=== PATIENT | male | born 1955 | race Caucasian/White ===

== ENCOUNTER 2017-06-25 10:14 | Inpatient (IN) | payer OTHER ==
[2017-06-25 11:15] LABS: Mean Corpuscular HGB Conc 34 g/dl (31-36); Mean Corpuscular Hemoglobin 35 pg (27-31); Mean Platelet Volume 9 um3 (7.4-10.4); Red Blood Count 4.18 10^6/ul (4.0-5.4); White Blood Count 5.8 10^3/ul (3.5-10.8)
[2017-06-25 11:18] LABS: Hematocrit 43 % (42-52); Hemoglobin 14.6 g/dl (14.0-18.0); Mean Corpuscular Volume 103 fL (80-94); Red Cell Distribution Width 14 % (10.5-15)
[2017-06-25 11:19] LABS: ALT 27 U/L (7-52); AST 43 U/L (13-39); Albumin 3.2 g/dL (3.2-5.2); Alkaline Phosphatase 123 U/L (34-104); Anion Gap 7 mmol/L (2-11); BUN/Creatinine Ratio 21.5 (8-20); Blood Urea Nitrogen 14 mg/dL (6-24); CO2 Carbon Dioxide 21 mmol/L (22-32); Calcium 8.7 mg/dL (8.6-10.3); Chloride 108 mmol/L (101-111); EGFR African American 161.7 (>60); EGFR Non-African American 125.7 (>60); Globulin 3.3 g/dL (2-4); Glucose 115 mg/dL (70-100); Potassium 3.6 mmol/L (3.5-5.0); Sodium 136 mmol/L (133-145); Total Protein 6.5 g/dL (6.4-8.9)
--- NOTE | 2017-06-25 11:31 | RAD ---
HISTORY: Expressive aphasia COMPARISONS: None TECHNIQUE: Multiple contiguous axial CT scans were obtained of the head without intravenous contrast. FINDINGS: HEMORRHAGE/INFARCT: There is no hemorrhage or acute infarct. MASSES/SHIFT: There is no mass or shift. EXTRA-AXIAL SPACES: There are no extra-axial fluid collections. SULCI AND VENTRICLES: The sulci and ventricles are normal in size and position for the patient's stated age. CEREBRUM: There are no focal parenchymal abnormalities. BRAINSTEM: There are no focal parenchymal abnormalities. CEREBELLUM: There are no focal parenchymal abnormalities. VESSELS: The vessels are grossly normal. PARANASAL SINUSES: The paranasal sinuses are clear. ORBITS: The orbits are unremarkable. BONES AND SOFT TISSUE: No bone or soft tissue abnormalities are noted. OTHER: None IMPRESSION: NO ACUTE INTRACRANIAL PATHOLOGY.
[2017-06-25 12:27] LABS: Urine Bilirubin Negative (Negative); Urine Glucose Negative (Negative); Urine Nitrite Negative (Negative)
[2017-06-25 13:02] LABS: Alcohol < 10 mg/dL (<10)
[2017-06-25] MEDS ORDERED: Ondansetron INJ* 2 MG/ML VIAL IV PRN (14:20)
[2017-06-25] MEDS ORDERED: NS 0.9% 1000 ML* 1,000 ML IV SCH (14:30)
[2017-06-25] MEDS ORDERED: LORazepam INJ* 2 MG/ML 1 ML VIAL IV PUSH ONE (14:55)
[2017-06-25] MEDS ORDERED: NS 0.9% 500 ML BAG* 500 ML IV ONE (15:50)
[2017-06-25] MEDS ORDERED: Flumazenil* 0.1 MG/ML 5 ML MDV IV ONE (16:50)
--- NOTE | 2017-06-25 16:58 | PN ---
Hospitalist Progress Note Asked to eval patient for worsening AMS, on eval responds minimally to sternal rub. Did receive ativan in the ed. Noted to be rigid in the upper exts. Will repeat ct brain, neuro consult tx to icu, [place] lactulose, ? if ams worsening ammonia or perhaps ativan. ICU for close monitoring
[2017-06-25] MEDS: NS 0.9% 1000 ML* 1,000 ML IV SCH (17:32)
--- NOTE | 2017-06-25 17:41 | HP ---
HISTORY AND PHYSICAL: DATE OF ADMISSION: 06/25/17 PRIMARY CARE PROVIDER: Unknown, he is from [facility]. ATTENDING PHYSICIAN WHILE IN THE HOSPITAL: Dr. Susu Malone * (report dictated by Abdullahi Dumont NP). CHIEF COMPLAINT: Altered mental status. HISTORY OF PRESENT ILLNESS: I would like to preface the report by saying that the patient really cannot give much history as he is pretty drowsy and is confused. The family is here and is able to tell me what happened. They said that the last couple of days, the patient has not been making sense. He has had increasing fatigue. He has been confused, waking up in the morning and not really knowing where he is. He has been not acting himself. They have noticed that his gait has been very ataxic, walking like he has drank too much and also noticed that he was incontinent of urine. They are concerned today because they thought may be he had a stroke because his speech was not making any sense at all today, so they brought him into the hospital. There has been no reports of fevers, abdominal pain, nausea, vomiting, diarrhea, chest pain, or shortness of breath. He was evaluated here in the ED, his ammonia was 226. We are asked to evaluate for admission. PAST MEDICAL HISTORY: Alcoholic liver cirrhosis. PAST SURGICAL HISTORY: He has had an appendectomy. HOME MEDICATIONS: Denied. ALLERGIES TO MEDICATIONS: Include no known drug allergies. FAMILY HISTORY: Mother had a history of an MD. His brother also had a liver disease and father had a history of pancreatitis. SOCIAL HISTORY: He is a former smoker, last drink was about a year ago. Surrogate decision maker is his . REVIEW OF SYSTEMS: There is no documented fever. Denied any significant weight change. There was no double vision. There was no ear discharge. Denied having any rhinorrhea. No sore throat. No thyroid enlargement. Denied having any chest pain or orthopnea. No nocturnal dyspnea. There was no abdominal pain. No nausea. No vomiting. There was no dysuria. No frequency. No loss of consciousness. No pruritus and no skin ulcerations. Review of 14 systems completed, all others were negative. PHYSICAL EXAMINATION GENERAL: At this time, Mr. Castro is a 51-year-old male patient; he is sitting in the ER stretcher. He does not appear to be in any acute distress. VITAL SIGNS: Reveals blood pressure 124/73, pulse of 70, respirations 16, O2 sat 96%, and temperature 98.9. HEENT: Head is atraumatic, normocephalic. Eyes: Pupils equal and reactive to light. Throat: Oral mucosa appears to be dry. No oropharyngeal erythema. NECK: Supple. LUNGS: Clear to auscultation. No wheezes, rales, or rhonchi. HEART: Sounds S1, S2. Regular rate and rhythm. No murmurs, rubs, or gallops. ABDOMEN: Soft, flat, nontender. I did not appreciate any ascites on my exam. EXTREMITIES: Pulses were 2+ throughout. Able to move all 4 extremities with 5/ 5 strength. NEUROLOGICAL: The patient is awake to himself only. He is confused to time, place. He cannot follow complex commands. He appears to be drowsy. He can move his upper extremities and lower extremities. No facial drooping. Neuro exam is limited because of lack of patient's participation, but no gross obvious focal deficits. SKIN: Intact. LABORATORY DATA/DIAGNOSTIC STUDIES: Today, WBC of 5.8, RBC of 4.18, hemoglobin of 14.6, hematocrit of 43, and a platelet count of 133. Coags are pending. Sodium is 136, potassium 3.6, chloride of 106, bicarb 21, BUN 14, creatinine 0.65, glucose of 115, lactate 2.7, and calcium 8.7. Total bili 1.8, AST 43, ALT 27, alk phos 123, ammonia was 226, albumin was 3.2. Urine was positive for urobilinogen. Toxicology was negative for alcohol. He had a brain CT obtained today as well, which revealed no acute intracranial pathology. EKG today showed normal sinus rhythm at the rate of 70. No ST elevation or T wave inversions. Old medical records were reviewed. ASSESSMENT AND PLAN: Mr. Castro is a 61-year-old male patient coming into the hospital today with complaints of altered mental status. On evaluation found to have ammonia of 226. He will be admitted under observation status for: 1. Hepatic encephalopathy. At this point, we touched base with GI. The plan is to try lactulose 30 mL q.i.d. If he does not clear his mentation then GI will see him tomorrow. We need to touch base with GI in the morning to update them how he is doing. We will touch base with Dr. Stevens, who will be here tomorrow. If he develops diarrhea, would consider adding rifaximin We will get neuro checks every 2 to 4 hours. If he does not clear as well, we will get in touch with Neurology and he may need further imaging of his brain. In terms of what caused the elevated pneumonia, it is unclear, is not actively bleeding that I could see, but no reports of fever, no obvious infection. I will put him on broad spectrum antibiotics and I will butler culture him and probably do some imaging if he does mount a fever, but at this point, I am holding off. 2. Alcoholic liver cirrhosis. He does have a security management specialist in [place]. We can start the lactulose. He is probably going to need to be on b.i.d. lactulose moving forward after his ammonia clears and he can follow with his primary security management specialist in [place]. 3. DVT prophylaxis. Placed on SCDs and holding on blood thinners, but I do not know if he has esophageal varices such as heparin, so I would like to just put him on SCDs. 4. Code status: Full code. 5. Fluids, electrolytes, and nutrition. He is n.p.o. once he is awake and put on low protein diet. In the meantime, I will add normal saline at 100 an hour. TIME SPENT: On the admission was 60 minutes, greater than half the time spent face- to-face with the patient obtaining my history and physical; other half time spent going over the plan of care with the patient and implementing the plan of care. I discussed the plan of care with my attending, Dr. Malone, who is in agreement. ABDULLAHI DUMONT, OJ [id number]/CPS #: [id number] [facility]
--- NOTE | 2017-06-25 18:47 | RAD ---
INDICATION: Altered mental status. COMPARISON: Comparison is made with a prior CT of the brain from June 25, 2017 from approximately 7 hours earlier. TECHNIQUE: Contiguous axial sections of the brain were obtained from the skull base to the vertex without contrast. FINDINGS: The ventricles, cisterns and sulci are within normal limits. No significant focal abnormality or mass effect is seen. There is no evidence for hemorrhage. No significant focal osseous abnormality is seen. The visualized portion of the paranasal sinuses and mastoid air cells appear clear. IMPRESSION: NO EVIDENCE FOR ACUTE INTRACRANIAL ABNORMALITY.
[2017-06-25] MEDS: Lactulose 300 ML for PR* 10 GM/15 ML BTL PR SCH (21:40)
--- NOTE | 2017-06-26 00:30 | CONS ---
NEUROLOGY CONSULTATION: DATE OF CONSULT: 06/25/17 REQUESTING PROVIDER: Abdullahi Dumont NP REASON FOR CONSULT: Unresponsiveness and rigidity. HISTORY OF PRESENT ILLNESS: Abdiel Lala is a 61-year-old man with a history of alcoholic liver cirrhosis, who lives in [facility] and has been here since 06/16/17 visiting his son, who attends [employer]. He is here with his . I was initially contacted by Dr. Pierce in the emergency room with concern for stroke in this patient. His family brought him in today stating that he has not been making sense over the past couple of days and it has been worsening. His son says he has had increasing fatigue and confusion including waking up and not really knowing where he is in the morning. He has had urinary incontinence and his gait has been off, very ataxic as though he had drank too much. Today, his speech was apparently not making any sense at all and so he was brought to the hospital for further evaluation. He did have a cold recently, but the son denies that he had any fevers associated with this. On further evaluation in the emergency department, his ammonia came back significantly elevated at 226 and so initially Abdullahi Dumont, who was evaluating him for admission, felt that Neurology did not need to be involved. He was apparently significantly agitated in the emergency department, pulling off his telemetry leads and trying to pulling out his IV lines and was given 2 mg of Ativan IV. He was subsequently transferred to the fourth floor and became significantly difficult to arouse with sonorous breathing. In addition, when Abdullahi Dumont went in to evaluate him, he had significant rigidity in his extremities and there was concern that he was posturing on his left side and so I was asked to evaluate the patient as well. I evaluated him over 2 separate evaluations and in between, he was given flumazenil for reversal of the lorazepam, which resulted in modest improvement in his mental status. PAST MEDICAL HISTORY: Alcohol liver cirrhosis. PAST SURGICAL HISTORY: Appendectomy. HOME MEDICATIONS: Family denied the patient taking any home medications. ALLERGIES: No known drug allergies. FAMILY HISTORY: Mother had a heart attack. His brother also has liver disease and father with a history of pancreatitis. SOCIAL HISTORY: He is a former smoker and apparently the last drink is reported to be approximately a year ago. REVIEW OF SYSTEMS: Not obtainable from the patient secondary to his clinical condition. PHYSICAL EXAM: Vital Signs: Temperature 97.6, blood pressure 116/59, oxygen saturation 100% on room air, heart rate 55. On general examination, the patient was lying in bed with snoring respirations. With noxious stimulation, he would grimace and say ow! and briefly open his eyes , but then would quickly fall back to sleep. He did not follow any commands. On neurologic examination, his gaze was dysconjugate when he was asleep but when alerted, became conjugate. He had roving eye movements in all directions. His VORs were intact. His pupils were dilated to 5 mm and reactive. There were no obvious blink to threat. His face is symmetric. On motor examination, he has significantly increased tone in the lower greater than upper extremities. Initially, I was unable to flex his arms at the elbows or his legs at his knees. In addition, when his arms were elevated, he had myoclonus versus asterixis, but would have some antigravity strength but not sustained. The toes are briskly upgoing. After flumazenil was administered, tone was much improved in his upper extremities and he was found to be lying in his bed with his legs flexed at the knees rather than extended straight out as he had been previously. He was noted to be able to state his name. He still was lethargic and fell asleep easily when not stimulated. Throughout this, he briskly reacted to noxious stimulation in all 4 extremities. DIAGNOSTIC STUDIES/LAB DATA: CBC shows an elevated MCV of 103 and MCH of 35. Platelets are low at 133. White count, hematocrit, hemoglobin were normal. Coagulation studies showed an elevated INR of 1.21. CMP showed slightly low CO2 of 21, creatinine of 0.65, BUN to creatinine ratio of 21.5, nonfasting glucose of 115, total bilirubin of 1.8, slightly elevated AST of 43 and ALT is normal at 27, and alkaline phosphatase is 123. His total protein was normal at 6.5 and albumin normal at 3.2. His ammonia as mentioned was 226. His lactate is elevated at 2.7 at 10:48 and then further elevated to 3 at 3:15 p.m. Urinalysis showed positive urobilinogen and otherwise negative. Serum alcohol level was less than 10. Brain CT was obtained and personally reviewed and was a normal study. IMPRESSION: Abdiel Lala is a 61-year-old man with alcoholic liver cirrhosis and hepatic encephalopathy who presented to the emergency department with encephalopathy. After receiving Ativan for agitation, he became significantly somnolent and exhibited increased tone. After administration flumazenil, his mental status improved somewhat as did his tone. Given the clinical change, however, we are going to be obtaining a repeat brain CT and he will be transferred to the ICU for closer monitoring. In addition, given his significant rigidity, though I think this is probably related to his hepatic encephalopathy, we will get an urgent EEG to evaluate for any signs of subclinical status. Otherwise, care as per the hospitalist team, which will involve administration of lactulose in an attempt to normalize his ammonia. Thank you for this consultation. [id number]/[facility] #: [id number] [facility]
[2017-06-26] MEDS: Lactulose 300 ML for PR* 10 GM/15 ML BTL PR SCH (06:56)
[2017-06-26 07:17] LABS: Hematocrit 39 % (42-52); Hemoglobin 13.6 g/dl (14.0-18.0); Mean Corpuscular HGB Conc 35 g/dl (31-36); Mean Corpuscular Hemoglobin 36 pg (27-31); Mean Corpuscular Volume 103 fL (80-94); Mean Platelet Volume 9 um3 (7.4-10.4); Red Blood Count 3.77 10^6/ul (4.0-5.4); Red Cell Distribution Width 14 % (10.5-15); White Blood Count 6.7 10^3/ul (3.5-10.8)
[2017-06-26 07:28] LABS: Albumin 2.8 g/dL (3.2-5.2); BUN/Creatinine Ratio 23.5 (8-20); Calcium 8.2 mg/dL (8.6-10.3); Direct Bilirubin 0.5 mg/dL (0.03-0.18); EGFR African American 213.9 (>60); EGFR Non-African American 166.3 (>60); Globulin 2.9 g/dL (2-4); Indirect Bilirubin 1.8 mg/dL (0.3-1.0); Potassium 3.5 mmol/L (3.5-5.0); Total Bilirubin 2.3 mg/dL (0.2-1.0); Total Protein 5.7 g/dL (6.4-8.9)
[2017-06-26] MEDS: NS 0.9% 1000 ML* 1,000 ML IV SCH (11:40)
--- NOTE | 2017-06-26 14:19 | EEG ---
ELECTROENCEPHALOGRAPHY: DATE OF STUDY: 06/25/17 LOCATION: Patient is an inpatient in ICU 8. CLINICAL PROBLEM: This is a 61-year-old male with alcoholic cirrhosis and hepatic encephalopathy, who presented to emergency department with increased confusion and gait problems today. He was given Ativan for agitation and became very difficult to arouse and rigid. When his limbs were moved, he would have some myoclonic jerking. EEG is requested to evaluate for epileptiform abnormalities. MEDICATIONS: 1. Lactulose. 2. Zofran 4 mg IV q. 6 p.r.n. 3. Normal saline at 100 mL per hour. Prior to this recording, he was given flumazenil 0.2 mg IV x1. REPORT: The background lacked the organization expected of a typical waking or sleep background. In the frontal regions, the background was characterized by polymorphic, 1 to 2 Hz frequency slowing, while in the posterior regions, activity consisted primarily of 5 Hz activity. As the patient fell asleep, there were fewer delta range frequencies and a greater proportion of the theta range frequencies noted within the background but no well-developed sleep spindles or vertex waves. In addition, during sleep, there were occasional periods of 1 to 2 seconds of diffuse voltage suppression. Throughout the recording, there were no epileptiform discharges, focal features , paroxysmal features, or significant interhemispheric asymmetries. CLINICAL IMPRESSION: This is an abnormal EEG due to the lack of expected organization in the waking or sleep background and diffuse slowing. These findings are consistent with a moderate, nonspecific, diffuse encephalopathy. There are no epileptiform abnormalities. [id number]/CPS #: [id number] MTDD
--- NOTE | 2017-06-26 15:43 | PN ---
Subjective Date of Service: 06/26/17 Interval History: HOSPITALIST PROGRESS NOTE Patient seen and examined at bedside. Son acts as radiographer angiogram. Patient feels well today, denies pain, N/V. Feels pretty close to normal. He states he had an UTI early last year and went to his doctor. Tests done at that time indicated elevated LFTs and further w/u revealed cirrhosis associated with alcohol. Hepatits B and C serologies were negative. He was told everything was stable and he did not need any medications. This is his first episode of hepatic encephalopathy. Denies fever, urinary or bowel complaints, no abdominal pain or black stools. Only thing different is his diet - since arriving to the he has been to [place] different restaurants. Family History: Unchanged from Admission Social History: Unchanged from Admission Past Medical History: Unchanged from Admission Objective Active Medications: Sodium Chloride (Ns 0.9% 1000 Ml*) 1,000 mls @ 100 mls/hr IV PER RATE [facility] Last Admin: 06/26/17 11:40 Dose: 100 mls/hr Lactulose (Lactulose*) 30 ml PO QID [facility] Last Admin: 06/26/17 14:56 Dose: 30 ml Ondansetron HCl (Zofran Inj*) 4 mg IV Q6H PRN PRN Reason: NAUSEA Vital Signs 06/26/17 11:39 Temperature 99 F Pulse Rate 76 Respiratory 18 Rate Blood Pressure 133/85 (mmHg) O2 Sat by Pulse 98 Oximetry Oxygen Devices in Use Now: None Appearance: Pleasant gentleman lying in bed in NAD. Eyes: No Scleral Icterus Ears/Nose/Mouth/Throat: Mucous Membranes Moist Neck: Trachea Midline Respiratory: Symmetrical Chest Expansion and Respiratory Effort, Clear to Auscultation Cardiovascular: RRR - Normal S1 and S2 Abdominal: NL Sounds; No Tenderness; No Distention Extremities: No Edema Neurological: Alert and Oriented x 3, NL Muscle Strength and Tone Lines/Tubes/Other Access: Clean, Dry and Intact Peripheral IV Nutrition: Taking PO's Result Diagrams: 06/26/17 06:00 06/26/17 06:00 Assess/Plan/Problems-Billing Assessment: Mr. Matthew Lala is a 61yo M with PMH of alcoholic liver cirrhosis, who presented to ED with altered MS found to have hepatic encephalopathy. - Patient Problems (1) Hepatic encephalopathy Comment: - Unclear what precipitated this episode. - He had Tmax 100.7, but no other signs of infection. - Denies hematochezia or melena. - Continue lactulose and monitor ammonia. - Advised about diet. - Son had labs from [place] - printed and placed in his chart. - Transfer to medical floor and continue to monitor. - I believe he probably had a reaction to benzos yesterday - EEG showed no epileptiform discharges. (2) DVT prophylaxis Comment: - SCDs. (3) Full code status Status and Disposition: Inpatient.
[2017-06-27 04:52] LABS: Hematocrit 39 % (42-52); Hemoglobin 13.5 g/dl (14.0-18.0); Mean Corpuscular HGB Conc 35 g/dl (31-36); Mean Corpuscular Hemoglobin 36 pg (27-31); Mean Corpuscular Volume 103 fL (80-94); Mean Platelet Volume 9 um3 (7.4-10.4); Red Blood Count 3.76 10^6/ul (4.0-5.4); Red Cell Distribution Width 14 % (10.5-15); White Blood Count 6.1 10^3/ul (3.5-10.8)
[2017-06-27 05:01] LABS: Albumin 2.7 g/dL (3.2-5.2); BUN/Creatinine Ratio 18.2 (8-20); Calcium 7.9 mg/dL (8.6-10.3); EGFR African American 196.1 (>60); EGFR Non-African American 152.5 (>60); Globulin 2.8 g/dL (2-4); Potassium 3.5 mmol/L (3.5-5.0); Total Bilirubin 1.7 mg/dL (0.2-1.0); Total Protein 5.5 g/dL (6.4-8.9)
[2017-06-27 07:45] VITALS: BP 134/77
[2017-06-27] MEDS: NS 0.9% 1000 ML* 1,000 ML IV SCH (07:48)
--- NOTE | 2017-06-27 08:44 | DCNOTE ---
Patient seen this morning with and son (who translated) at bedside. Patient says he is feeling much better, family feels he is back to baseline. Has been having frequent diarrhea, explained need to titrate lactulose to 2-3 soft stools daily. On exam, RRR, s1 and s2 present, no m/g/r, abd soft, NTND, BS+, no ascites, no LE edema. Plan to discharge home today on BID lactulose. Will need outpatient follow-up with his home tax compliance representative, he is flying home in a few days. Counseled on diet.
--- NOTE | 2017-06-28 03:54 | DS ---
DISCHARGE SUMMARY: DATE OF ADMISSION: 06/25/17 DATE OF DISCHARGE: 06/27/17 PRIMARY CARE PHYSICIAN: The [place]CP [place] of the country. He lives in [facility]. PRINCIPAL DISCHARGE DIAGNOSIS: Hepatic encephalopathy. SECONDARY DIAGNOSIS: Alcoholic cirrhosis. DISCHARGE MEDICATION REGIMEN: Lactulose 30 g by mouth 2 times daily. STUDIES DURING THE HOSPITALIZATION: CT of the brain, impression: No acute intracranial pathology. CT of the brain repeated no evidence for acute intracranial abnormality. EEG, impression: This is an abnormal EEG due to lack of expected organization in the waking or sleep background and diffuse slowing, these findings are consistent with a moderate nonspecific diffuse encephalopathy. There ar e no epileptiform abnormalities. CONSULTS DURING HOSPITALIZATION: Dr. Mariya Chavira, Neurology. HISTORY OF PRESENT ILLNESS AND HOSPITAL SUMMARY: Please see the full history and physical by Abdullahi garcía NP for full details. Briefly, Mr. Matthew Lala is a 61- year-old male with a past medical history of alcoholic cirrhosis, who presented to the hospital with increasing fatigue, confusion, s ome ataxic gait. The patient was brought to the emergency room by his family. He is visiting from [facility]. He was found to have an elevated ammonia up to 226. He was started on lactulose. There was no clear evidence of infection or GI bleed or any etiology for why his ammonia may be high. The kusum daniel became unresponsive with some possible rigidity after receiving Ativan. He was transferred to the ICU, evaluated by Neurology, it was found that this was likely an adverse reaction. To this, jeremias franco was given some flumazenil with improvement in his symptoms. Over the following days with lactulose, the patient's symptoms completely resolved and he was back t o baseline as far as mental status goes. He will be continued on lactulose as an outpatient and was instructed to titrate to 2 to 3 soft bowel movements daily. The patient will continue to abstain f rom alcohol. He will follow up with his [facility] [place] back in [facility] as he will be flying back in 3 d ays. TIME SPENT: Total time spent on this discharge was 45 minutes. This is a summary of the hospitalization, please see the full medical record for further details. [id number]/[facility] #: [id number]
--- NOTE | 2017-07-03 15:08 | ED ---
Brennan Brown Angela, scribed for Ruben Pierce MD on 06/25/17 at 1101 . Neurological HPI - HPI Summary HPI Summary: This pt is a 61 y/o male presenting to [facility] accompanied by his family c/o weakness and abnormal ambulation for 3 days, worsening today becoming more slower than usual. Pt's notes that he has been walking dragging his feet while ambulating for 3-4 days. Pt's son reports that the pt repeated the same words all the time, asking out of the ordinary questions, and was unable to hold a pen to sign today. Pt's son states pt is just getting over a cold. He denies fever, headache, chest pain, abd pain, back pain, and dizziness. Pt's son notes pt has been a heavy alcohol drinker but quit on 2014. Pt and are visiting from [facility] since June 16. Per pt's family, pt doesn't take any medications. - History of Current Complaint Chief Complaint: EDNeurologicalDeficit Stated Complaint: GENERAL ILLNESS Time Seen by Provider: 06/25/17 10:44 Hx Obtained From: Patient, Family/Prop Setter - and son Onset/Duration: Started days ago Timing: Constant Neurological Deficit Location: Generalized Pain Intensity: 0 Character: Confusion, Other: - Abnormal ambulation. Garbled speech. Aggravating: Nothing Alleviating: Nothing Associated Signs and Symptoms: Positive: Confusion, Weakness. Negative: Headache, Dizziness, Pain, Lightheadness, Fever, Chest Pain, Shortness of Breath - Allergy/Home Medications Allergies/Adverse Reactions: Allergies Allergy/AdvReac Type Severity Reaction Status Date / Time No Known Allergies Allergy Verified 06/25/17 10:36 Home Medications: Home Medications NK [No Home Medications Reported] 06/25/17 [History Confirmed 06/25/17] PMH/Surg Hx/FS Hx/Imm Hx Neurological History: Denies: Hx CVA Psychiatric History: Reports: Hx Substance Abuse - Heavy alcoholic drinker Infectious Disease History: No Infectious Disease History: Reports: Traveled Outside the [place] in Last 30 Days - traveled from [facility] - Social History Alcohol Use: Former heavy drinker. Quit on 2014 Substance Use Type: Reports: None Smoking Status (MU): Former Smoker Review of Systems Negative: Fever, Chills Negative: Erythema Negative: Sore Throat Negative: Chest Pain Negative: Shortness Of Breath, Cough Negative: Abdominal Pain, Vomiting, Nausea Negative: dysuria, hematuria Negative: Myalgia, Edema Negative: Rash Neurological: Other - NEGATIVE: Dizziness. POSITIVE: confusion, abnormal ambulation, garbled speech Positive: Weakness All Other Systems Reviewed And Are Negative: Yes Physical Exam - Summary Physical Exam Summary: Constitutional: Well-developed, Well-nourished, Alert. (-) Distressed Skin: Warm, Dry HENT: Eyes: Conjunctiva normal Neck: Musculoskeletal ROM normal neck. (-) JVD, (-) Stridor, (-) Tracheal deviation Cardio: Rhythm regular, rate normal, Heart sounds normal; Intact distal pulses; The pedal pulses are 2+ and symmetric. Radial pulses are 2+ and symmetric. (-) Murmur Pulmonary/Chest wall: Effort normal. (-) Respiratory distress, (-) Wheezes, (-) Rales Abd: Soft. (-) Tenderness, (-) Distension, (-) Guarding, (-) Rebound Musculoskeletal: (-) Edema Lymph: (-) Cervical adenopathy Neuro: Alert, Oriented x3, Strength normal, Cranial nerves II-XII are grossly intact. (-) Nystagmus, (-) Sensory deficit. Mild asymmetry on right side of face, quite subtle. Ataxia by finger to nose testing. Dysmetria. Psych: Mood and affect Normal Triage Information Reviewed: Yes Vital Signs On Initial Exam: Initial Vitals BP 136/77 06/25/17 10:28 Vital Signs Reviewed: Yes - [place] Coma Scale Coma Scale Total: 14 Diagnostics - Vital Signs Vital Signs Temp Pulse Resp BP Pulse Ox 06/25/17 10:30 98.9 F 74 11 140/78 98 06/25/17 10:29 78 99 06/25/17 10:28 136/77 - Laboratory Result Diagrams: 06/25/17 10:48 06/25/17 10:48 Lab Statement: Any lab studies that have been ordered have been reviewed, and results considered in the medical decision making process. - CT Brain CT Interpretation: No Acute Changes - Impression: No acute intracranial pathology. CT Interpretation Completed By: Radiologist - EKG 10:35 Cardiac Rate: NL - 90 bpm EKG Rhythm: Sinus Rhythm EKG Interpretation: No STEMI. Course/Dx - Diagnoses Provider Diagnoses: Altered mental status, Hepatic encephalopathy - Physician Notifications Discussed Care Of Patient With: Abdullahi Dumont Time Discussed With Above Provider: 13:00 Instructed by Provider To: Other - Discussed care of pt with Dr. Dumont. He has agreed to admit pt. 13:15 - Discussed pt care with Dr. Chavira (neurology). He will admit pt to MRI with or without contrast. Discharge - Discharge Plan Condition: Stable Disposition: ADMITTED TO [facility] Referrals: No Primary Care Phys,NOPCP [Primary Care Provider] - The documentation as recorded by the Brennan ramirez Angela accurately reflects the service I personally performed and the decisions made by me, Ruben Pierce MD.
== END 2017-06-27 10:10 | disposition home or self-care (01) | DRG 443 ==
LOC: ED 10:14 → MEDTELE 14:48 → ICU 16:46 → MED 06-26 11:43
PROVIDERS: ADMIT Hospitalist; ATTEND Hospitalist
PROC: 4A00X4Z Measurement of Central Nervous Electrical Activity, External Approach (ICD-10-PCS; principal; 2017-06-25)
DX: K72.90 Hepatic failure, unspecified without coma (principal); M62.89 Other specified disorders of muscle; T42.4X5A Adverse effect of benzodiazepines, initial encounter; R26.0 Ataxic gait; K70.30 Alcoholic cirrhosis of liver without ascites; Z87.891 Personal history of nicotine dependence; Z82.49 Family history of ischemic heart disease and other diseases of the circulatory system
CPT/HCPCS: 36415; 70450; 80048; 80053; 80076; 80320; 81003; 82140; 83605; 84484; 85025; 85610; 93005; 95816; A9270-GY; G0480; J2060